=== PATIENT | female | born 1980 | race Hispanic/Latino ===

== ENCOUNTER 2017-01-13 10:00 | Emergency (ER) | payer OTHER ==
[2017-01-13] MEDS ORDERED: NACL 0.9% 500 ML 500 ML IV ONE (10:35)
[2017-01-13 10:56] LABS: Basophils % (Auto) 0.4 % (0.0-1.8); Eosinophils % (Auto) 0.1 % (0.0-4.3); Mean Corpuscular HGB Conc 30 % (30-34); Platelet Count 321 K/mm3 (140-440); Red Blood Count 4.45 M/mm3 (3.65-5.03); Red Cell Distribution Width 19.5 % (13.2-15.2); White Blood Count 15.1 K/mm3 (4.5-11.0)
[2017-01-13 11:02] LABS: Hematocrit 27.6 % (30.3-42.9); Hemoglobin 8.2 gm/dl (10.1-14.3); Mean Corpuscular Hemoglobin 18 pg (28-32); Mean Corpuscular Volume 62 fl (79-97)
[2017-01-13 11:04] LABS: INR 1.06 (0.87-1.13)
[2017-01-13] MEDS ORDERED: NACL 0.9% 1000 ML 1,000 ML IV ONE (11:06)
[2017-01-13] MEDS ORDERED: ZOFRAN IV ONE (11:06)
--- NOTE | 2017-01-13 11:11 | Emergency Department Report ---
ED General Adult HPI - General Chief complaint: Fever Stated complaint: FEVER/CHILLS/BODY ACHE Time Seen by Provider: 01/13/17 11:01 Source: patient Mode of arrival: Ambulatory Limitations: No Limitations - History of Present Illness Initial comments: Patient is a 36-year-old oral female with no significant past medical history is coming today with nausea vomiting and diarrhea and generalized body aches for the last 4 days patient stated that she did not eat so drink anything for the last few days. 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 - Related Data Previous Rx's Medication Instructions Recorded Last Taken Type Azithromycin [Zithromax Z-DIEGO] 250 mg PO QDAY #6 tablet 03/31/16 Unknown Rx Ibuprofen [Motrin] 800 mg PO Q8HR PRN #14 tablet 03/31/16 Unknown Rx Ondansetron [Zofran TAB] 4 mg PO Q8HR PRN #14 tablet 03/31/16 Unknown Rx Phenylephrine/Dm/Acetaminop/GG 20 ml PO Q4HR PRN #180 liquid 03/31/16 Unknown Rx [Mucinex Khmg-Hpy-Yqotezwylc Lq] Azithromycin [Zithromax Z-DIEGO] 250 mg PO DAILY 1 Days tab 01/13/17 Unknown Rx Ondansetron [Zofran Odt] 4 mg PO Q8HR PRN #14 tab.rapdis 01/13/17 Unknown Rx traMADol [Ultram] 50 mg PO Q6HR PRN #14 tablet 01/13/17 Unknown Rx Allergies Allergy/AdvReac Type Severity Reaction Status Date / Time No Known Allergies Allergy Verified 01/13/17 11:20 ED Review of Systems ROS: Stated complaint: FEVER/CHILLS/BODY ACHE Other details as noted in HPI Comment: All other systems reviewed and negative Constitutional: chills, fever ENT: congestion. denies: ear pain, throat pain, dental pain, hearing loss Respiratory: cough, shortness of breath Cardiovascular: palpitations. denies: chest pain, dyspnea on exertion, orthopnea, edema, syncope, paroxysmal nocturnal dyspnea Gastrointestinal: nausea, vomiting, diarrhea. denies: abdominal pain, constipation, hematemesis, melena, hematochezia Genitourinary: denies: urgency, dysuria, frequency, hematuria, discharge Neurological: denies: headache, weakness, numbness, paresthesias, confusion ED Past Medical Hx - Past Medical History Previous Medical History?: No - Surgical History Additional Surgical History: C SECTION X 2 - Social History Smoking Status: Current Every Day Smoker Substance Use Type: None - Medications Home Medications: Home Medications Medication Instructions Recorded Confirmed Last Taken Type Azithromycin [Zithromax Z-DIEGO] 250 mg PO QDAY #6 tablet 03/31/16 Unknown Rx Ibuprofen [Motrin] 800 mg PO Q8HR PRN #14 tablet 03/31/16 Unknown Rx Ondansetron [Zofran TAB] 4 mg PO Q8HR PRN #14 tablet 03/31/16 Unknown Rx Phenylephrine/Dm/Acetaminop/GG 20 ml PO Q4HR PRN #180 liquid 03/31/16 Unknown Rx [Mucinex Grsv-Mtl-Ptljdwqixw Lq] Azithromycin [Zithromax Z-DIEGO] 250 mg PO DAILY 1 Days tab 01/13/17 Unknown Rx Ondansetron [Zofran Odt] 4 mg PO Q8HR PRN #14 tab.rapdis 01/13/17 Unknown Rx traMADol [Ultram] 50 mg PO Q6HR PRN #14 tablet 01/13/17 Unknown Rx ED Physical Exam - General Limitations: No Limitations General appearance: alert, in no apparent distress - Head Head exam: Present: atraumatic, normocephalic - Eye Eye exam: Present: normal appearance, PERRL - ENT ENT exam: Present: normal exam, mucous membranes dry - Neck Neck exam: Present: normal inspection, full ROM. Absent: tenderness, meningismus, lymphadenopathy, thyromegaly - Respiratory Respiratory exam: Present: normal lung sounds bilaterally. Absent: respiratory distress, wheezes, rales, rhonchi, stridor, chest wall tenderness, accessory muscle use, decreased breath sounds, prolonged expiratory - Cardiovascular Cardiovascular Exam: Present: regular rate, tachycardia, normal heart sounds. Absent: systolic murmur, diastolic murmur - GI/Abdominal GI/Abdominal exam: Present: soft, normal bowel sounds. Absent: distended, tenderness, guarding, rebound, rigid, organomegaly, mass, bruit, pulsatile mass , hernia - Extremities Exam Extremities exam: Present: normal inspection, full ROM, normal capillary refill. Absent: tenderness, pedal edema, joint swelling, calf tenderness - Back Exam Back exam: Present: normal inspection. Absent: CVA tenderness (R), CVA tenderness (L) - Neurological Exam Neurological exam: Present: alert, oriented X3, CN II-XII intact, normal gait, reflexes normal. Absent: abnormal gait, motor sensory deficit - Skin Skin exam: Present: warm, dry, intact ED Course Vital Signs 01/13/17 01/13/17 01/13/17 10:31 11:57 12:30 Temperature 99.7 F H 100.8 F H Pulse Rate 124 H 109 H 99 H Respiratory 18 16 18 Rate Blood Pressure 141/74 Blood Pressure 147/77 143/84 [Left] O2 Sat by Pulse 98 99 99 Oximetry 01/13/17 01/13/17 13:14 14:30 Temperature Pulse Rate 108 H Respiratory 20 20 Rate Blood Pressure Blood Pressure 151/89 [Left] O2 Sat by Pulse 100 Oximetry - Reevaluation(s) Reevaluation #1: 01/13/17 15:04 Patient stated that she is feeling much better, no nausea no vomiting. ED Medical Decision Making - Lab Data Result diagrams: 01/13/17 10:40 01/13/17 10:40 - Radiology Data Radiology results: report reviewed Chest x-ray no acute finding. Critical care attestation.: If time is entered above; I have spent that time in minutes in the direct care of this critically ill patient, excluding procedure time. ED Disposition Clinical Impression: Acute bronchitis, Nausea vomiting and diarrhea, Dehydration Disposition: DC-01 TO HOME OR SELFCARE Is pt being admited?: No Condition: Stable Instructions: Acute Bronchitis (ED), Acute Nausea and Vomiting (ED) Prescriptions: Azithromycin [Zithromax Z-DIEGO] 250 mg PO DAILY 1 Days tab Ondansetron [Zofran Odt] 4 mg PO Q8HR PRN #14 tab.rapdis PRN Reason: Nausea And Vomiting traMADol [Ultram] 50 mg PO Q6HR PRN #14 tablet PRN Reason: Pain Referrals: PRIMARY CARE,MD [Primary Care Provider] - 3-5 Days
[2017-01-13] MEDS ORDERED: MORPHINE IV ONE (11:12)
--- NOTE | 2017-01-13 11:12 | XRay Report ---
AP CHEST :01/13/17 CLINICAL: Sepsis. COMPARISON:None. FINDINGS: Normal heart and pulmonary vasculature. The lungs are normally expanded and clear. The bones and soft tissues are normal. IMPRESSION: Normal chest.
[2017-01-13 11:24] LABS: Alanine Aminotransferase 20 units/L (7-56); Albumin 3.8 g/dL (3.9-5); Albumin/Globulin Ratio 0.9 %; Alkaline Phosphatase 94 units/L (35-129); Anion Gap 19 mmol/L; BUN/Creatinine Ratio 9; Blood Urea Nitrogen 6 mg/dL (7-17); Calcium 9.1 mg/dL (8.4-10.2); Carbon Dioxide 23 mmol/L (22-30); Chloride 93.8 mmol/L (98-107); Glucose 137 mg/dL (65-100); Potassium 3.7 mmol/L (3.6-5.0); Sodium 132 mmol/L (137-145)
[2017-01-13] MEDS ORDERED: ROCEPHIN/NS 1 GM/50 ML 1 GM/50 ML BAG IV ONE (11:57)
[2017-01-13] MEDS ORDERED: cefTRIAXone 1 GM in NACL 0.9% 20 ML IV ONE (12:15)
[2017-01-13 14:33] LABS: Bilirubin,Urine NEG (Negative); Blood,Urine SM (Negative); Ketones,Urine NEG (Negative); Leukocyte Esterase,Urine NEG (Negative); Nitrite,Urine NEG (Negative)
[2017-01-13 14:34] LABS: Protein,Urine >500 mg/dL (Negative)
[2017-01-13] MEDS ORDERED: TORADOL IV ONE (15:06)
[2017-01-13 15:42] VITALS: BP 151/89
== END 2017-01-13 15:52 | disposition home or self-care (01) ==
LOC: ED 10:00
DX: J20.9 Acute bronchitis, unspecified (principal); E86.0 Dehydration; F17.200 Nicotine dependence, unspecified, uncomplicated
CPT/HCPCS: 36415; 71010; 80053; 81001; 82140; 82805; 83690; 85025; 85610; 87040; 87086; 87400; 93005; 93010; 96374; 96375; 99284; J0696; J1885; J2270; J2405; J7030